=== PATIENT | male | born 1965 | race Caucasian/White ===

== ENCOUNTER 2020-08-08 23:21 | Emergency (ER) | payer OTHER ==
[~2020-08-08 23:21] MED LIST: KEFLEX250 MG PO; NORCO 5-325 TA1 EACH PO
[2020-08-09 01:02] LABS: BILIRUBIN 2+ mg/dL (NEGATIVE); BLOOD 3+ Ery/uL (NEGATIVE); CLARITY CLOUDY (CLEAR); COLOR RED (YELLOW); GLUCOSE (U) 3+ mg/dL (NORMAL); LEUKOCYTES 3+ Leu/uL (NEGATIVE); NITRITE POSITIVE (NEGATIVE); PROTEIN 3+ mg/dL (NEGATIVE); SPECIFIC GRAVITY 1.015 (1.001-1.030)
[2020-08-09 01:07] LABS: BACTERIA 2+; SQUAMOUS EPITHELIAL CELLS RARE; URINARY RBC TNTC
[2020-08-09 01:56] LABS: BASOPHIL 0.3 % (0-2); EOSINOPHIL 0.3 % (0-5); HCT 43.7 % (42.0-52.0); HGB 15.2 g/dl (13.2-18.0); LYMPHOCYTE 7.6 % (15-48); MCH 32.4 pg (25.0-31.0); MCHC 34.8 g/dL (32.0-36.0); MCV 93.2 fL (78.0-100.0); MONOCYTE 13.5 % (0-12); MPV 9.8 fL (6.0-9.5); NEUTROPHIL 78.1 % (41-80); NRBC 0; PLT 197 K/uL (150-400); RBC 4.69 M/uL (4.70-6.00); RDW 12.7 % (11.5-14.0); WBC 12.4 K/uL (4.0-10.5)
[2020-08-09 02:09] LABS: INR 1.11 (0.9-1.2); PROTHROMBIN TIME 13.6 SECONDS (11.4-13.6); PTT 30.2 SECONDS (22.2-34.7)
[2020-08-09 02:16] LABS: ALBUMIN 3.8 g/dL (3.4-5.0); BILIRUBIN - TOTAL 1.2 mg/dL (0.2-1.0); BUN/CREAT RATIO (CALC) 17.3 RATIO; CREATININE 0.81 mg/dL (0.67-1.17); GLOBULIN (CALCULATION) 3.7 g/dL; POTASSIUM 3.8 mmol/L (3.5-5.1); TOTAL PROTEIN 7.5 g/dL (6.4-8.2)
[2020-08-09] MEDS ORDERED: BACTRIM DS TAB1 EACH PO (03:52)
== END 2020-08-09 04:06 | disposition home or self-care (01) ==
LOC: FER 23:21
PROVIDERS: Emergency Medicine Emergency Medical Services
DX: N30.01 Acute cystitis with hematuria (principal); E11.9 Type 2 diabetes mellitus without complications; I51.9 Heart disease, unspecified; Z79.82 Long term (current) use of aspirin; Z79.899 Other long term (current) drug therapy; Z79.02 Long term (current) use of antithrombotics/antiplatelets
CPT/HCPCS: 36415; 80053; 81001; 85025; 85610; 85730; 87076; 87088; 87186; J0696